=== PATIENT | male | born 1990 | race African-American/Black ===

== ENCOUNTER 2025-01-10 14:15 | Emergency (ER) | payer MEDICAID ==
[~2025-01-10] VITALS: Ht 188 cm; Wt 90.0 kg
--- NOTE | 2025-01-10 14:24 | ECG ---
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
--- NOTE | 2025-01-10 14:47 | ED.PDOC ---
HPI Comments HPI: Poor Historian. 34-year-old male presents to emergency department for at least one day history of left lower ribcage pain. Patient points specifically to the his mid clavicular mid axillary lower ribcage region where he is having pain. There is no pain over the soft tissue of the abdomen itself. Pain is constant worse with deep inspiration and movement. Pain is better with laying flat on his left side. Denies any fall or trauma or injury. Past Medical History: Denies any Past Surgical History: Denies REVIEW OF SYSTEMS: CONSTITUTIONAL: Denies acute: fever, diaphoresis, chills, generalized weakness. HEAD: Denies acute: headache, photophobia Eyes: Denies acute: Double vision, vision loss, eye pain, eye discharge. EARS: Denies acute: tinnitus, hearing loss, ear discharge, ear pain, THROAT: Denies acute: sore throat, swelling, difficulty swallowing , pain with swallowing, change in voice. NECK: Denies acute: neck pain, neck swelling, stiff neck. HEART: Denies acute : palpitations, LUNGS: Denies acute: SOB, wheezing, cough, hemoptysis ABDOMEN: Denies acute: abdominal pain, Nausea, Vomiting, diarrhea, melena , hematemesis, hematochezia SKIN: Denies acute: rash, redness, lesions, itchiness. EXTREMITIES: Denies acute: calf pain, numbness, tingling, weakness, denies pain in extremity. Denies acute: Low back pain. Neuro: Denies acute: focal neurological deficit, motor or sensory focal neurological deficit, tremors, seizure like activity, confusion, dizziness, change in mental status, loss of bowel or bladder function, cauda equina like symptoms. : Denies acute: dysuria, hematuria, flank pain, increase in urinary frequency. PSYCH: Denies acute: hallucination, suicidal ideation, homicidal ideation. PHYSICAL EXAM: General: ---[id number]-----acute distress, awake and alert. Head: normocephalic, atraumatic. Neck: supple, trachea is midline, no swelling. Throat: Normal phonation. Eyes:, no erythema, no purulent discharge, no proptosis, no icterus. Heart: regular rate, regular rhythm, no significant murmur appreciated. Lungs: no apparent respiratory distress, Able to speak in full sentences. No wheezing, no rhonchi, no crackles. No stridors Clear to auscultation bilaterally. Abdomen: non tender to palpation, non distended, soft, no guarding, no rebound, + bowel sounds. Patient has specific left lower ribcage pain that wraps around the side of his ribcage on the left side. No crepitus appreciated. Denies any fall or trauma. No bruising, no swelling. Neuro: Awake, Alert, oriented to name, self, situation, follows commands GCS=15. Speech is normal. Skin: no petechia, no purpura, no cyanosis, non-pale, not jaundice. Lower extremities: --no - Pitting edema no deformity, no focal swelling, no calf TTP. Makes eye contact. moves all four extremities. Face: no apparent facial droop. Mild left CVA tenderness to percussion bilat Ambulating in the ED independently. ED COURSE: Chief Complaint: Chest Pain Time Seen by MD: 14:17 Primary Care Provider: PETAR Reviewed Notes: Nurses Notes, Allergies Allergies: Coded Allergies: NO KNOWN ALLERGIES (Unverified , 01/10/25) Information Source: Patient Mode of Arrival: Ambulatory Past Medical History PAST MEDICAL HISTORY: Denies Surgical History: Denies all surgeries Family History Family History: Unknown Social History Smoker: Non-Smoker Alcohol: Denies ETOH Use Drugs: Denies Drug Use Was a procedure done? Was a procedure done?: No CP Differential Dx Differential Diagnosis: N/A Differential Diagnosis: Other (Ddx include but not limitied to gastritis, musculoskeletal pain, radiculopathy, atypical chest pain, dissection, aneurysm, ACS, unstable angina, hiatal hernia, GERD, anxiety, costochondritis, PE, pneumothroax, neoplasm, cardiac ischemia, drug abuse, anemia.) X-Ray, Labs, Meds, VS Vital Signs Date Time Temp Pulse Resp B/P (MAP) Pulse Ox O2 Delivery O2 Flow Rate FiO2 01/10/25 20:20 98.2 96 18 105/69 (81) 95 98.2 01/10/25 20:20 96 18 95 Room Air* 0 21 01/10/25 15:18 96 01/10/25 14:22 100 01/10/25 14:15 99.1 96 18 127/76 (93) 99 99.1 Lab Test 01/10/25 16:14 01/10/25 14:50 01/10/25 14:26 Range/Units Troponin I High Sensitivity 3 L < 3 L </=54 ng/L Urine Opiates Screen Neg NEGATIVE Urine Fentanyl Screen Neg NEGATIVE Urine Barbiturates Screen Neg NEGATIVE Urine Phencyclidine Screen Neg NEGATIVE Urine Amphetamines Screen Neg NEGATIVE Urine Benzodiazepines Screen Neg NEGATIVE Urine Cocaine Screen Neg NEGATIVE Urine Cannabinoids Screen Neg NEGATIVE White Blood Count 8.7 4.4-10.8 10^3/uL Red Blood Count 5.68 4.5-5.90 10^6/uL Hemoglobin 15.2 13.5-17.5 g/dL Hematocrit 45.5 41.0-53.0 % Mean Corpuscular Volume 80.1 80.0-100.0 fL Mean Corpuscular Hemoglobin 26.8 L 28.0-32.0 pg Mean Corpuscular Hemoglobin Concent 33.4 32.0-36.0 g/dL Red Cell Distribution Width 13.9 11.8-14.3 % Platelet Count 264 140-450 10^3/uL Mean Platelet Volume 7.7 6.9-10.8 fL Neutrophils (%) (Auto) 44.9 37.0-80.0 % Lymphocytes (%) (Auto) 38.1 10.0-50.0 % Monocytes (%) (Auto) 14.4 H 0.0-12.0 % Eosinophils (%) (Auto) 1.7 0.0-7.0 % Basophils (%) (Auto) 0.9 0.0-2.0 % Neutrophils # (Auto) 3.9 1.6-8.6 10 ^3/uL Lymphocytes # (Auto) 3.3 0.4-5.4 10 ^3/uL Monocytes # (Auto) 1.3 0-1.3 10 ^3/uL Eosinophils # (Auto) 0.2 0-0.8 10 ^3/uL Basophils # (Auto) 0.1 0-0.2 10 ^3/uL Nucleated Red Blood Cells 0.1 % D-Dimer, Quantitative 0.47 0.0-0.49 mg/L FEU Sodium Level 139 136-145 mmol/L Potassium Level 4.2 3.5-5.1 mmol/L Chloride Level 106 98-107 mmol/L Carbon Dioxide Level 26 20-31 mmol/L Anion Gap 7 5-15 Blood Urea Nitrogen 11 9-23 mg/dL Creatinine 0.87 0.700-1.30 mg/dL Glomerular Filtration Rate Calc 115 >90 mL/min BUN/Creatinine Ratio 12.6 10.0-20.0 Serum Glucose 88 74-106 mg/dL Calcium Level 10.1 8.7-10.4 mg/dL Total Bilirubin 1.7 H 0.2-1.0 mg/dL Aspartate Amino Transferase (AST) 13 13-40 U/L Alanine Aminotransferase (ALT) 27 7-40 U/L Alkaline Phosphatase 114 46-116 U/L Total Protein 7.3 5.7-8.2 g/dL Albumin 4.5 3.2-4.8 g/dL [place] [address] Ph: [phone] DIAGNOSTIC IMAGING Diagnostic Imaging Report : [id number] Signed PATIENT: TERESA SOSA NACCT: [id number] UNIT: [id number] : 1990 LOC: ER ROOM / BED: / AGE / SEX: 34 / M ADM STATUS: REG ER SERVICE [id number] ORDERING PHYSICIAN: AMY FRASER DO PROCEDURE(s): CTCAP - CHST AB PEL WO CON-NO IV/ORAL REASON: L sided ribcage pain, L flank ORDER NUMBER(s): [id number], ACCESSION NUMBER(s): [id number] CT CHST AB PEL WO CON-NO IV/ORAL HISTORY: L sided ribcage pain, L flank Comparison Study: NoneNone TECHNIQUE: Multidetector CT of the chest, abdomen and pelvis was performed from lower neck to pubic symphysis without the use of intravenous contrast. Axial, coronal and sagittal multiplanar reformats were performed by the technologist on a separate workstation. Radiation Dose : CTDI vol 10.62 mGy, DLP 797.52 mGy*cm. Findings: Chest: Lungs: Unremarkable Pleura: Unremarkable Heart/Great vessels: The visualized heart is unremarkable. No cardiomegaly or pericardial effusion. Mediastinum: Unremarkable Soft tissues/Bones: Unremarkable Abdomen: Liver: Unremarkable. Gallbladder: Unremarkable. Spleen: Unremarkable Pancreas: Unremarkable Adrenals: Unremarkable. No nephroureterolithiasis. Kidneys: Unremarkable GI tract: Unremarkable : Unremarkable. Vasculature: Unremarkable Lymphadenopathy: Absent Peritoneum: No ascites Musculoskeletal: Unremarkable Soft tissues: Unremarkable Impression: Chest: 1. No acute cardiopulmonary disease or acute osseous abnormalities. Abdomen: 1. No acute abdominopelvic abnormalities. 2. No nephroureterolithiasis. ATED BY: NASREEN FUENTES DO DICTATED DATE/TIME: 01/10/251756 SIGNED BY: NASREEN FUENTES DO SIGNED DATE/TIME: 01/10/251756 CC: [place] [address] Ph: [phone] DIAGNOSTIC IMAGING Diagnostic Imaging Report : [id number] Signed PATIENT: ABBY SOSACCT: [id number] UNIT: [id number] : 1990 LOC: ER ROOM / BED: / AGE / SEX: 34 / M ADM STATUS: REG ER SERVICE 141 ORDERING PHYSICIAN: AMY FRASER DO PROCEDURE(s): CXRP - CHEST PORTABLE REASON: cp ORDER NUMBER(s): [id number], ACCESSION NUMBER(s): [id number] EXAM: XY CHEST PORTABLE Indication: cp Technique: Single frontal view of the chest was obtained Comparison: None FINDINGS: Lines and Tubes: None Lungs: No focal consolidation. Pleura: No effusion. No pneumothorax. Cardiomediastinal contours: Unremarkable Bones: No acute osseous abnormality. IMPRESSION: No acute cardiopulmonary disease. ATED BY: CLIFFORD PHILIPPE MD DICTATED DATE/TIME: 01/10/251455 SIGNED BY: CLIFFORD PHILIPPE MD SIGNED DATE/TIME: 01/10/251455 CC: Time of 1ST Reevaluation: 19:07 Reevaluation 1ST: Improved Patient Education/Counseling: Diagnosis, Treatment Family Education/Counseling: No Family Present Comments Patient presented with the above HPI.--this pain----workup was initiated. patient was found with the above mentioned diagnosis. the following medications were ordered: please refer to order lists of meds and tests obtained by myself Dr. Fraser. Patient ED course and VS have been stabilized. Patient has been reassessed in the ED and remained in a stable condition. Pertinent incidental findings were discussed with the patient and/or family. Patient/family voices understanding and is agreeable with plan. Patient has been observed in the ED adequate length of time to insure improvement/stability. Escalation of care considered: Consideration of escalation to observation or admission Patient pain appears to be musculoskeletal in origin. Patient was DISCHARGED home in a stable condition. All the reports of any imaging studies that were ordered by myself were reviewed by myself. Departure 1 Departure Time of Disposition: 19:07 Impression: Primary Impression: Chest pain Additional Impression: Musculoskeletal chest pain Disposition: HOME / SELF CARE / HOMELESS Condition: Stable Additional Instructions: Additional instructions: You MUST follow-up with your primary care/family doctor in 1 to 2 days. If you are unable to see your primary care/family doctor, please return to our emergency room for re-assessment and re-evaluation in 1 to 2 days. Return to the emergency room here in our facility or to the nearest ER [facility] if your symptoms change or worsen. CONSULTATIONS: you MUST Follow-up for consultation as soon as possible with: cardiology in 1-2 days. Please call for appointment. You MUST call the consultants office yourself to make an appointment. You may need to arrange that through your insurance and/or your primary/family doctor. If you are unable to see the alliances consultant in 1 to 2 days, you must return to our emergency room (or any other ER of your choice) for re-assessment and re- evaluation. Adequate fluid hydration. Below is a copy of your radiological report for follow up: [address] [address] Ph: [phone] DIAGNOSTIC IMAGING Diagnostic Imaging Report : [id number] Signed PATIENT: TERESA SOSA ACCT: [id number] UNIT: [id number] : 1990 LOC: ER ROOM / BED: / AGE / SEX: 34 / M ADM STATUS: REG ER SERVICE [id number] ORDERING PHYSICIAN: AMY FRASER DO PROCEDURE(s): CTCAP - CHST AB PEL WO CON-NO IV/ORAL REASON: L sided ribcage pain, L flank ORDER NUMBER(s): [id number], ACCESSION NUMBER(s): [id number] CT CHST AB PEL WO CON-NO IV/ORAL HISTORY: L sided ribcage pain, L flank Comparison Study: NoneNone TECHNIQUE: Multidetector CT of the chest, abdomen and pelvis was performed from lower neck to pubic symphysis without the use of intravenous contrast. Axial, coronal and sagittal multiplanar reformats were performed by the technologist on a separate workstation. Radiation Dose : CTDI vol 10.62 mGy, DLP 797.52 mGy*cm. Findings: Chest: Lungs: Unremarkable Pleura: Unremarkable Heart/Great vessels: The visualized heart is unremarkable. No cardiomegaly or pericardial effusion. Mediastinum: Unremarkable Soft tissues/Bones: Unremarkable Abdomen: Liver: Unremarkable. Gallbladder: Unremarkable. Spleen: Unremarkable Pancreas: Unremarkable Adrenals: Unremarkable. No nephroureterolithiasis. Kidneys: Unremarkable GI tract: Unremarkable : Unremarkable. Vasculature: Unremarkable Lymphadenopathy: Absent Peritoneum: No ascites Musculoskeletal: Unremarkable Soft tissues: Unremarkable Impression: Chest: 1. No acute cardiopulmonary disease or acute osseous abnormalities. Abdomen: 1. No acute abdominopelvic abnormalities. 2. No nephroureterolithiasis. ATED BY: NASREEN FUENTES DO DICTATED DATE/TIME: 01/10/251756 SIGNED BY: NASREEN FUENTES DO SIGNED DATE/TIME: 01/10/251756 CC: [place] [address] Ph: [phone] DIAGNOSTIC IMAGING Diagnostic Imaging Report : [id number] Signed PATIENT: TERESA SOSA ACCT: [id number] UNIT: [id number] : 1990 LOC: ER ROOM / BED: / AGE / SEX: 34 / M ADM STATUS: REG ER SERVICE 1419 ORDERING PHYSICIAN: AMY FRASER DO PROCEDURE(s): CXRP - CHEST PORTABLE REASON: cp ORDER NUMBER(s): [id number], ACCESSION NUMBER(s): [id number] EXAM: XY CHEST PORTABLE Indication: cp Technique: Single frontal view of the chest was obtained Comparison: None FINDINGS: Lines and Tubes: None Lungs: No focal consolidation. Pleura: No effusion. No pneumothorax. Cardiomediastinal contours: Unremarkable Bones: No acute osseous abnormality. IMPRESSION: No acute cardiopulmonary disease. ATED BY: CLIFFORD PHILIPPE MD DICTATED DATE/TIME: 01/10/251455 SIGNED BY: CLIFFORD PHILIPPE MD SIGNED DATE/TIME: 01/10/251455 CC: Discharged With: Self Critical Care Note Critical Care Time?: No Heart Score Heart Score: Heart Score Response (Comments) Value History Slightly Suspicious 0 EKG Normal 0 Age <45 0 Risk Factors No known risk factors 0 Troponin Normal limit 0 Total 0 I personally scribed for AMY FRASER DO ([email or web address]) on 01/10/25 at 19:10. Electronically submitted by Haylee Redding ([facility] AMY FRASER DO January 10, 2025 14:47
[2025-01-10 14:53] LABS: Basophils # (auto) 0.1 10 ^3/uL (0-0.2); Basophils % (auto) 0.9 % (0.0-2.0); Eosinophils # (auto) 0.2 10 ^3/uL (0-0.8); Eosinophils % (auto) 1.7 % (0.0-7.0); Hematocrit 45.5 % (41.0-53.0); Hemoglobin 15.2 g/dL (13.5-17.5); Lymphocytes # (auto) 3.3 10 ^3/uL (0.4-5.4); Lymphocytes % (auto) 38.1 % (10.0-50.0); Mean Corpuscular Hemoglobin 26.8 pg (28.0-32.0); Mean Corpuscular Hgb Conc. 33.4 g/dL (32.0-36.0); Mean Corpuscular Volume 80.1 fL (80.0-100.0); Monocytes # (auto) 1.3 10 ^3/uL (0-1.3); Monocytes % (auto) 14.4 % (0.0-12.0); Neutrophils # (auto) 3.9 10 ^3/uL (1.6-8.6); Neutrophils % (auto) 44.9 % (37.0-80.0); Nucleated Red Blood Cells % 0.1 %; Platelet Count (auto) 264 10^3/uL (140-450); Red Blood Cells 5.68 10^6/uL (4.5-5.90); Red Cell Distribution Width 13.9 % (11.8-14.3); White Blood Cell 8.7 10^3/uL (4.4-10.8)
--- NOTE | 2025-01-10 14:59 | DVH ---
EXAM: XY CHEST PORTABLE Indication: cp Technique: Single frontal view of the chest was obtained Comparison: None FINDINGS: Lines and Tubes: None Lungs: No focal consolidation. Pleura: No effusion. No pneumothorax. Cardiomediastinal contours: Unremarkable Bones: No acute osseous abnormality. IMPRESSION: No acute cardiopulmonary disease.
[2025-01-10 15:08] LABS: Alanine Aminotransferase 27 U/L (7-40); Albumin 4.5 g/dL (3.2-4.8); Alkaline Phosphatase 114 U/L (46-116); Anion Gap 7 (5-15); BUN/Creatinine Ratio 12.6 (10.0-20.0); Blood Urea Nitrogen 11 mg/dL (9-23); Calcium 10.1 mg/dL (8.7-10.4); Carbon Dioxide 26 mmol/L (20-31); Chloride 106 mmol/L (98-107); Glucose 88 mg/dL (74-106); Potassium 4.2 mmol/L (3.5-5.1); Sodium 139 mmol/L (136-145); Total Protein 7.3 g/dL (5.7-8.2)
[2025-01-10 15:15] LABS: Aspartate Aminotransferase 13 U/L (13-40); Bilirubin, Total 1.7 mg/dL (0.2-1.0)
[2025-01-10 15:29] LABS: Amphetamine Screen, Urine Neg (NEGATIVE)
--- NOTE | 2025-01-10 15:32 | ECG ---
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
[2025-01-10 15:33] LABS: Barbiturate Scree,Urine Neg (NEGATIVE); Benzodiazephine Screen, Urine Neg (NEGATIVE); Cannabinoid Screen, Urine Neg (NEGATIVE); Cocaine Screen, Urine Neg (NEGATIVE); Opiate Scree,Urine Neg (NEGATIVE); Phencyclidine Screen, Urine Neg (NEGATIVE)
--- NOTE | 2025-01-10 18:00 | DVH ---
CT CHST AB PEL WO CON-NO IV/ORAL HISTORY: L sided ribcage pain, L flank Comparison Study: NoneNone TECHNIQUE: Multidetector CT of the chest, abdomen and pelvis was performed from lower neck to pubic s ymphysis without the use of intravenous contrast. Axial, coronal and sagittal multiplanar reformats w ere performed by the technologist on a separate workstation. Radiation Dose : CTDI vol 10.62 mGy, DLP 797.52 mGy*cm. Findings: Chest: Lungs: Unremarkable Pleura: Unremarkable Heart/Great vessels: The visualized heart is unremarkable. No cardiomegaly or pericardial effusion. Mediastinum: Unremarkable Soft tissues/Bones: Unremarkable Abdomen: Liver: Unremarkable. Gallbladder: Unremarkable. Spleen: Unremarkable Pancreas: Unremarkable Adrenals: Unremarkable. No nephroureterolithiasis. Kidneys: Unremarkable GI tract: Unremarkable : Unremarkable. Vasculature: Unremarkable Lymphadenopathy: Absent Peritoneum: No ascites Musculoskeletal: Unremarkable Soft tissues: Unremarkable Impression: Chest: 1. No acute cardiopulmonary disease or acute osseous abnormalities. Abdomen: 1. No acute abdominopelvic abnormalities. 2. No nephroureterolithiasis.
--- NOTE | 2025-01-10 18:57 | ECG ---
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
[2025-01-10] MEDS: KETOROLAC TROMETH 30 MG/ML 1ML VIAL IM ONE (20:19)
[2025-01-10 20:20] VITALS: BP 105/69; PULSE 96; RESP 18; TEMP 98.2; O2SAT 95
[2025-01-10] MEDS: ASPirin-EC 325mg tab PO ONE (20:20)
[2025-01-10] MEDS: HYDROcodone-ACET 5/325MG TAB PO ONE (20:20)
== END 2025-01-10 20:20 | disposition home or self-care (01) ==
LOC: ER 14:15
DX: R07.89 Other chest pain (principal); M79.10 Myalgia, unspecified site; R07.81 Pleurodynia
CPT/HCPCS: 36415; 71045; 71250; 74176; 80053; 80307; 84484; 85025; 85379; 93005